=== PATIENT | female | born 2000 | race Two or more races ===

== ENCOUNTER 2024-02-28 06:58 | Emergency (ER) | payer MEDICAID, OTHER ==
[~2024-02-28] VITALS: Ht 167.6 cm; Wt 100.9 kg
[2024-02-28 08:07] VITALS: PULSE 91; RESP 20; O2SAT 100
[2024-02-28 08:21] LABS: Urine Bacteria None Seen /hpf (None Seen)
[2024-02-28 08:52] LABS: Urine Blood Negative /uL (Negative); Urine Clarity Clear (Clear); Urine Color Light-Yellow (Yellow); Urine Protein, UAD Negative (Negative); Urine Specific Gravity 1.017 (1.001-1.035); Urine Urobilinogen Normal (Negative); Urine WBC 2 /hpf (0 - 5)
[2024-02-28] MEDS ORDERED: CEPH250C PO (09:59)
[2024-02-28 10:28] VITALS: BP 122/75; PULSE 84; RESP 18; TEMP 98; O2SAT 100
[2024-02-28] MEDS: diphenhdrAMINE HCL 25 MG CAP PO ONE (10:28)
== END 2024-02-28 10:29 | disposition home or self-care (01) ==
LOC: ER 06:58
DX: O23.41 Unspecified infection of urinary tract in pregnancy, first trimester (principal); N39.0 Urinary tract infection, site not specified; R51.9 Headache, unspecified; R47.81 Slurred speech; R20.0 Anesthesia of skin; R06.02 Shortness of breath; Z3A.10 10 weeks gestation of pregnancy
CPT/HCPCS: 81001; 82962; 93005